=== PATIENT | female | born 1965 | race Asian ===

== ENCOUNTER 2017-11-04 10:23 | Emergency (ER) | payer BC ==
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
[2017-11-04] MEDS ORDERED: LET GEL TOPICAL 1 EA SYR TP ONE (10:39)
[2017-11-04 12:17] VITALS: BP 109/63
== END 2017-11-04 12:17 | disposition home or self-care (01) ==
DX: S69.91XA Unspecified injury of right wrist, hand and finger(s), initial encounter (principal); S00.81XA Abrasion of other part of head, initial encounter; S80.211A Abrasion, right knee, initial encounter; S80.212A Abrasion, left knee, initial encounter; S69.92XA Unspecified injury of left wrist, hand and finger(s), initial encounter; V18.4XXA Pedal cycle driver injured in noncollision transport accident in traffic accident, initial encounter; Y92.89 Other specified places as the place of occurrence of the external cause; Y99.8 Other external cause status; Y93.55 Activity, bike riding